=== PATIENT | male | born 2005 ===

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

== ENCOUNTER 2025-01-21 01:35 | Emergency (ER) | payer OTHER ==
[~2025-01-21] VITALS: Ht 182.9 cm; Wt 72.6 kg
[2025-01-21 03:03] VITALS: BP 146/83
== END 2025-01-21 04:55 | disposition left against medical advice (07) ==
LOC: ER 01:35
DX: M54.50 Low back pain, unspecified (principal); Z53.21 Procedure and treatment not carried out due to patient leaving prior to being seen by health care provider
CPT/HCPCS: 72100